=== PATIENT | female | born 1945 | race Caucasian/White ===

== ENCOUNTER 2022-06-20 10:05 | Outpatient (CLI) | payer MEDICARE, BC, SELFPAY ==
[2022-06-20 13:35] LABS: Iron* 110 ug/dL (37-170)
[2022-06-20 13:44] LABS: Percent Iron Saturation 30 % (20-50); Total Iron Binding Capacity 371 ug/dL (265-497)
[2022-06-20 13:52] LABS: Vitamin D 25 Hydroxy* 51 ng/mL (30-80)
[2022-06-20 14:23] LABS: Vitamin B12* 529 pg/mL (243-894)
== END 2022-06-20 10:06 | disposition home or self-care (01) ==
PROVIDERS: PCP Family Medicine; Visit Provider Family Medicine
DX: R20.0 Anesthesia of skin (principal); M85.80 Other specified disorders of bone density and structure, unspecified site; G62.9 Polyneuropathy, unspecified; E78.5 Hyperlipidemia, unspecified; Z13.0 Encounter for screening for diseases of the blood and blood-forming organs and certain disorders involving the immune mechanism
CPT/HCPCS: 82306; 82607; 83540; 83550

== ENCOUNTER 2022-11-21 11:03 | Outpatient (CLI) | payer MEDICARE, BC, SELFPAY ==
[2022-11-21 22:12] LABS: Chloride* 107 mmol/L (96-114)
[2022-11-21 22:13] LABS: Albumin* 4.7 g/dL (3.3-5.0); Sodium* 142 mmol/L (135-149)
[2022-11-21 22:14] LABS: Potassium* 4.4 mmol/L (3.6-5.1)
[2022-11-21 22:16] LABS: Alanine Aminotransferase* 21 U/L (4-35); Alkaline Phosphatase* 79 U/L (40-150); Aspartate Amino Transferase* 25 U/L (12-35); Bilirubin Total* 0.7 mg/dL (0.1-1.5); Blood Urea Nitrogen* 24 mg/dL (7-30); Carbon Dioxide* 27 mmol/L (20-32); Creatinine* 1.1 mg/dL (0.5-1.5); Estimated Glomerular Filt Rate 52 ml/min; Glucose* 96 mg/dL (60-115); Total Protein* 7.5 g/dL (6.0-8.3)
[2022-11-21 22:17] LABS: Calcium* 9.6 mg/dL (8.4-10.6)
[2022-11-21 22:31] LABS: Vitamin D 25 Hydroxy* 36 ng/mL (30-80)
[2022-11-21 22:46] LABS: TSH With Reflex to FT4* 0.285 uIU/mL (0.270-4.200)
[2022-11-21 23:02] LABS: Hepatitis C Virus Antibody* Negative (Negative)
[2022-11-23 21:32] LABS: SSA-60 (Ro60) (ENA) IgG 1 AU/mL (0-40); SSA52 (Ro52) (ENA) IgG 1 AU/mL (0-40)
== END 2022-11-21 11:04 | disposition home or self-care (01) ==
PROVIDERS: PCP Family Medicine; Visit Provider Family Medicine
DX: Z00.00 Encounter for general adult medical examination without abnormal findings (principal); E78.5 Hyperlipidemia, unspecified; G62.9 Polyneuropathy, unspecified; L85.3 Xerosis cutis; R68.2 Dry mouth, unspecified; Z11.59 Encounter for screening for other viral diseases; M85.80 Other specified disorders of bone density and structure, unspecified site
CPT/HCPCS: 80053; 82306; 84443; 86235; 86617; 86618; 86803

== ENCOUNTER 2023-02-27 12:44 | Outpatient (CLI) | payer MEDICARE, BC, SELFPAY ==
--- NOTE | 2023-02-27 13:00 | CRLHL7_ITS ---
For Patients: As a result of the Century Cures Act, medical imaging exams and procedure reports are released immediately into your electronic medical record. You may view this report before your referring provider. If you have questions, please contact your health care provider. DXA BONE MINERAL DENSITY STUDY Reason for exam: POSTMENOPAUSAL STATUS. Current height (in): 66. Weight (lb): 140. Menopause age: 47. Ethnicity: White. 1. Have you had a previous hip or vertebral fracture? No. 2. Have you had any fractures during your adult life which did not result from significant trauma (e.g., auto accident)? No. 3. Did either of your parents have a hip fracture? No. 4. Do you smoke? No. 5. Have you ever taken Glucocorticoids? No. 6. Do you have rheumatoid arthritis? No. 7. Do you have secondary osteoporosis? No. 8. Do you drink 3 or more alcoholic drinks per day? No. 9. Are you being treated for osteoporosis? No. 10. Have you ever taken any of the following medications: Actonel, Evista, Fosamax, Miacalcin, Reclast, Boniva, Forteo, HRT (i.e. estrogen/hormone therapy), Protelos, Prolia, Vitamin D, Calcium, other ??? please specify. ANSWER: Yes, vitamin D, calcium. 11. Do you have any of the following medical conditions: Anorexia or bulimia, asthma or emphysema, end stage renal disease, hyperparathyroidism, any seizure disorders, cancer, inflammatory bowel diseases, hysterectomy, other ??? please specify. ANSWER: Yes, hysterectomy. 12. What was your maximum height (inches)? 66. 13. Do you perform weight bearing exercise regularly? No. 14. Do you regularly consume dairy products? Yes. 15. Do you drink caffeinated beverages? Yes. 16. At what age did your period start? 12. 17. Are you premenopausal? No. 18. How many full term pregnancies have you had? 2. 19. Have you ever missed your period for more than 6 months in a row (not including or menopause)? No. TECHNIQUE: Bone mineral density study was performed using the [employer]. FINDINGS: The results of the study expressed as bone mineral density (BMD) are as follows: Lumbar spine L1 to L2: BMD: 1.013 g/cm2. T-score: 0.3. Z-score: 2.7. Neck Left: BMD: 0.682 g/cm2. T-score: -1.5. Z-score: 0.7. Right: BMD: 0.683 g/cm2. T-score: -1.5. Z-score: 0.7 Total Left: BMD: 0.789 g/cm2. T-score: -1.3. Z-score: 0.7. Right: BMD: 0.839 g/cm2. T-score: -0.8. Z-score: 1.1. IMPRESSION: Osteopenia. *Comparison exams done prior to 04/2020 were performed on different unit, [employer]. COMPARISON: Compared with scan of 07/23/2018, the bone mineral density has decreased by 3.5 percent at the spine and decreased by 2.1 percent at the hip. Compared with scan of 11/10/2014, the bone mineral density has increased 1.8 percent at the spine and decreased by 2.6 percent at the hip. FRAX 10-year Fracture Risk Major Osteoporotic Fracture: 12 percent Hip Fracture: 2.8 percent Reported Risk Factors: [place] () Neck BMD= 0.682, BMI= 22.6 Tristin Vogt M.D. Diagnostic Radiologist [email or web address] RUDY/Dictated by: Tristin Vogt MD @ 02/28/2023 12:18:00 PM (Electronically Signed)
--- NOTE | 2023-02-27 13:40 | CRLHL7_ITS ---
For Patients: As a result of the Century Cures Act, medical imaging exams and procedure reports are released immediately into your electronic medical record. You may view this report before your referring provider. If you have questions, please contact your health care provider. BILATERAL SCREENING MAMMOGRAM WITH COMPUTER-AIDED DETECTION AND TOMOSYNTHESIS TECHNIQUE: CC and MLO views were obtained. These mammographic images have been obtained using full-field digital technique. These mammographic images were interpreted with the benefit of computer-aided detection. Breast Tomosynthesis was used in this interpretation. COMPARISON FILM: 12/13/19, 07/23/18, 04/10/17. FINDINGS: The breasts are heterogeneously dense, which may obscure small masses IMPRESSION: There is no radiographic evidence for malignancy. ASSESSMENT: BI-RADS Category 1: Negative RECOMMENDATION: Routine screening mammogram in 1 year. A lay language report of this examination will be provided to the patient. Tristin Vogt M.D. Diagnostic Radiologist [email or web address] RUDY/Dictated by: Tristin Vogt MD @ 02/28/2023 9:47:00 AM (Electronically Signed)
== END 2023-02-27 12:45 | disposition home or self-care (01) ==
LOC: RAD 12:45
PROVIDERS: PCP Family Medicine; Visit Provider Family Medicine
DX: Z12.31 Encounter for screening mammogram for malignant neoplasm of breast (principal); R92.2 Inconclusive mammogram; Z78.0 Asymptomatic menopausal state; M85.89 Other specified disorders of bone density and structure, multiple sites
CPT/HCPCS: 77063; 77067; 77080

== ENCOUNTER 2023-08-12 11:54 | Outpatient (CLI) | payer MEDICARE, BC, SELFPAY | END 2023-08-12 11:55 | disposition home or self-care (01) | LOC: NFLDREF 08-13 07:32 | PROVIDERS: PCP Family Medicine; Referring Provider Family Medicine; Visit Provider Nurse Practitioner Family | DX: R30.0 Dysuria (principal); N39.0 Urinary tract infection, site not specified; N30.01 Acute cystitis with hematuria | CPT/HCPCS: 87086; 87186 ==

== ENCOUNTER 2023-08-27 13:57 | Outpatient (CLI) | payer MEDICARE, BC, SELFPAY | END 2023-08-27 13:58 | disposition home or self-care (01) | LOC: LKVREF 13:57 | PROVIDERS: PCP Family Medicine; Visit Provider Physician Assistant Medical | DX: R30.0 Dysuria (principal) | CPT/HCPCS: 87086; 87186 ==

== ENCOUNTER 2023-11-27 09:29 | Outpatient (CLI) | payer MEDICARE, BC, SELFPAY | END 2023-11-27 09:30 | disposition home or self-care (01) | PROVIDERS: PCP Family Medicine; Visit Provider Family Medicine | DX: Z00.00 Encounter for general adult medical examination without abnormal findings (principal); R73.03 Prediabetes; G62.9 Polyneuropathy, unspecified; Z13.1 Encounter for screening for diabetes mellitus | CPT/HCPCS: 80053; 82607; 82746 ==

== ENCOUNTER 2024-02-20 16:17 | Outpatient (CLI) | payer MEDICARE, BC, SELFPAY | END 2024-02-20 16:18 | disposition home or self-care (01) | LOC: NFLDREF 02-21 05:31 | PROVIDERS: PCP Family Medicine; Referring Provider Family Medicine; Visit Provider Physician Assistant | DX: N39.0 Urinary tract infection, site not specified (principal); B96.20 Unspecified Escherichia coli [E. coli] as the cause of diseases classified elsewhere; B96.1 Klebsiella pneumoniae [K. pneumoniae] as the cause of diseases classified elsewhere | CPT/HCPCS: 87086; 87186 ==

== ENCOUNTER 2024-02-26 10:44 | Outpatient (CLI) | payer MEDICARE, BC, SELFPAY ==
--- NOTE | 2024-02-26 11:00 | US_ITS ---
Patient: CHEMA VELA Facility:?[facility] Patient ID:?[id number] Site Patient ID:?[id number]. Site :?[id number] Study:?US-Abdomen/Pelvis AAA SCREENING-02/26/2024 11:33:52 AM Ordering Physician:?ALAYNA ROMERO Final Report: INDICATION: History of smoking; screening for abdominal aortic aneurysm. TECHNIQUE: Ultrasound examination of the abdominal aorta. FINDINGS: The proximal abdominal aorta measures 2.3 cm, midabdominal aorta measures 1.6 cm and the distal abdominal aorta measures 1.4 cm in AP diameter. The common iliac arteries measure 1.1 cm in diameter. Mild calcified atheromatous changes. IMPRESSION: No evidence of abdominal aortic aneurysm. Dictated by German Yarbrough MD @ 02/27/2024 2:28:02 PM Signed by:?German Yarbrough MD @02/27/2024 2:28:02 PM (Electronic Signature)
== END 2024-02-26 10:45 | disposition home or self-care (01) ==
LOC: US 10:46
PROVIDERS: PCP Family Medicine; Visit Provider Family Medicine
DX: Z13.6 Encounter for screening for cardiovascular disorders (principal); Z87.891 Personal history of nicotine dependence
CPT/HCPCS: 76706

== ENCOUNTER 2024-05-10 11:10 | Outpatient (CLI) | payer MEDICARE, BC, SELFPAY | END 2024-05-10 11:11 | disposition home or self-care (01) | LOC: NFLDREF 05-14 18:24 | PROVIDERS: PCP Family Medicine; Referring Provider Family Medicine; Visit Provider Nurse Practitioner | DX: R30.0 Dysuria (principal); N30.01 Acute cystitis with hematuria | CPT/HCPCS: 87086; 87186 ==

== ENCOUNTER 2024-05-12 08:58 | Outpatient (CLI) | payer MEDICARE, BC, SELFPAY ==
--- NOTE | 2024-05-12 09:15 | CRLHL7_ITS ---
For Patients: As a result of the Century Cures Act, medical imaging exams and procedure reports are released immediately into your electronic medical record. You may view this report before your referring provider. If you have questions, please contact your health care provider. BILATERAL SCREENING MAMMOGRAM WITH COMPUTER-AIDED DETECTION AND TOMOSYNTHESIS TECHNIQUE: CC and MLO views were obtained. These mammographic images have been obtained using full-field digital technique. These mammographic images were interpreted with the benefit of computer-aided detection. Breast tomosynthesis was used in this interpretation. COMPARISON FILM: 02/27/23, 12/13/19, 07/23/18. FINDINGS: The breasts are heterogeneously dense, which may obscure small masses. IMPRESSION: There is no radiographic evidence for malignancy. ASSESSMENT: BI-RADS Category 2: Benign RECOMMENDATION: Routine screening mammogram in 1 year. A lay language report of this examination will be provided to the patient. TRISTIN PRITCHARD M.D. Diagnostic Radiologist [email or web address] Transcribed: 2:[address]/Dictated by: Tristin Pritchard MD @ 05/12/2024 12:20:00 PM (Electronically Signed)
== END 2024-05-12 08:59 | disposition home or self-care (01) ==
LOC: MAMMO 08:59
PROVIDERS: PCP Family Medicine; Visit Provider Family Medicine
DX: Z12.31 Encounter for screening mammogram for malignant neoplasm of breast (principal); R92.2 Inconclusive mammogram
CPT/HCPCS: 77063; 77067

== ENCOUNTER 2024-05-28 15:15 | Outpatient (CLI) | payer MEDICARE, BC, SELFPAY | END 2024-05-28 15:16 | disposition home or self-care (01) | LOC: NFLDREF 05-30 10:09 | PROVIDERS: PCP Family Medicine; Referring Provider Family Medicine; Visit Provider Physician Assistant | DX: N39.0 Urinary tract infection, site not specified (principal); B96.20 Unspecified Escherichia coli [E. coli] as the cause of diseases classified elsewhere | CPT/HCPCS: 87086; 87186 ==

== ENCOUNTER 2024-05-31 11:52 | Outpatient (CLI) | payer MEDICARE, BC, SELFPAY | END 2024-05-31 11:53 | disposition home or self-care (01) | PROVIDERS: PCP Family Medicine; Visit Provider Family Medicine | DX: R19.7 Diarrhea, unspecified (principal); R63.5 Abnormal weight gain | CPT/HCPCS: 84439; 84443 ==

== ENCOUNTER 2024-08-04 09:01 | Outpatient (CLI) | payer MEDICARE, BC, SELFPAY ==
--- NOTE | 2024-08-04 09:15 | CRLHL7_ITS ---
For Patients: As a result of the Century Cures Act, medical imaging exams and procedure reports are released immediately into your electronic medical record. You may view this report before your referring provider. If you have questions, please contact your health care provider. INDICATION: Low back pain. COMPARISON: None. TECHNIQUE: Sagittal T1, T2, and STIR sequences. Axial T1 and T2 weighted sequences. FINDINGS: Degenerative grade 1 anterolisthesis of L3 on L4 and L4 on L5 measuring approximately 5-6 mm. Otherwise, normal alignment. No fractures. No vertebral body loss of height. No ligamentous injury. No suspicious osseous lesions. Normal conus terminates at L1. Small degenerative cyst along the posterior margin of the left facet joint. T12-L1 L1-2: No spinal canal neural foraminal narrowing. L2-3: No spinal canal narrowing. No neural foraminal narrowing. L3-4: Grade 1 anterolisthesis. Unroofed posterior disc bulge. Mild narrowing of spinal canal. Mild narrowing of the right neural foramen. No narrowing of the left neural foramen. Mild facet arthropathy. L4-5: Grade 1 anterolisthesis. Disc degeneration. Diffuse disc bulge eccentric to the right. Mild narrowing of spinal canal. Oblique orientation of bilateral foramina with moderate narrowing of the right neural foramen. No narrowing of left neural foramen. Mild facet arthropathy. L5-S1: Disc degeneration. Diffuse disc bulge. No narrowing of spinal canal. No impingement of the traversing S1 nerve roots. No neural foraminal narrowing. Normal visualized SI joints. Small left renal cyst. IMPRESSION: 1. Degenerative grade 1 anterolisthesis of L3 on L4 and L4 on L5. Otherwise normal alignment. No fractures 2. Lumbar spondylosis. 3. At L3-4, mild narrowing of the spinal canal and right neural foramen 4. At L4-5, mild narrowing of the spinal canal. Moderate narrowing of the right neural foramen. Dictated by Nael Arthur MD @ 08/05/2024 8:57:39 AM (Electronically Signed)
== END 2024-08-04 09:02 | disposition home or self-care (01) ==
LOC: MRI 09:02
PROVIDERS: PCP Family Medicine; Visit Provider Family Medicine
DX: M54.50 Low back pain, unspecified (principal); M43.16 Spondylolisthesis, lumbar region; N28.1 Cyst of kidney, acquired; R20.0 Anesthesia of skin
CPT/HCPCS: 72148

== ENCOUNTER 2024-08-25 09:00 | Outpatient (RCR) | payer MEDICARE, BC, SELFPAY ==
--- NOTE | 2024-08-11 16:09 | PT.OPE ---
PT [place] Outpatient Eval PT [facility] Outpatient Eval Start: 08/11/24 15:34 Freq: Status: Active Protocol: Document 08/11/24 15:35 HETAL (Rec: 08/11/24 16:06 HETAL [id number]) E-signed By Mars Higgins, PT, ATC Physical Therapy Outpatient Evaluation Insurance Information Insurance Name Medicare B Medical Diagnosis [id number], lumbar region Treating Diagnosis LE numbness Lower back and buttocks pain Imaging Report Information L3-4 Grade 1 anterolisthesis, posterior disc bulge, mild narrowing of spinal canal, mild narrowing of R neural foramen. L4-5 Grade 1 anterolisthesis, disc degeneration, diffuse disc bulge, moderate narrowing of neural foramen. Referring Florian Butler MD Subjective Preferred Name Sravani Subjective Reports a 20+ year history of lower back pain with onset of bilateral lower leg and foot numbness over the past year. Symptoms create difficulty with ADL's, care of and most farm chores. No feeling of leg weakness or falls/instability. She was given conflicting information by previous providers regarding the presence of neuropathies causing the lower limb symptoms. MRI performed 08/04/24. She was given the choice of treatments including surgery consideration, injections and PT. Her intermittent back pain is described as an ache that extends from the lower aspect into both buttocks. Leg numbness occurs from the knees down and is constant. She provides a significant amount of care to her and this is her primary source of discomfort. 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 Precautions Weight Bearing Status Full Weight Bearing Therapy Limitations/Systems Review Not Limited Objective Range of Motion Trunk AROM is not limited by pain. All motion deficits approximately 50%. Strength Trunk, hip and LE strength currently 5/5 for all joints and their respective patterns. Swelling None observed in LE's Palpation Tender and sensitive to palpation in the lumbar paraspinal and gluteal muscles . Balance & Gait Gait-absence of trunk:hip rotation, minimal UE swing Posture Stands with decreased lumbar lordosis, equal hip height. Sensation/Reflexes DTR patella:normal R and L achilles: normal R and L Able to identify soft/deep touch and sharp sensitivity in LE's. Other/Pertinent Objective Negative Slump and SLR tests Assessment Assessment/Impression Landy is a pleasant and physically fit 79 year old female referred to PT because of lower back and leg symptoms . MRI does identify multi- level degeneration, stenosis and anterolisthesis which are likely the cause for her symptoms. 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 Muscle tension certainly present in the lumbar paraspinal and gluteal musculature. Hypomobile lumbar and SI segment mobility. Skilled PT recommended to address tight musculature, vertebral hypomobility and pain. Patient has very good abdominal strength and core presence yet continued work in this area still advised. Plan of Care Rehabilitation Potential Fair Rehabilitation Potential Comments Degenerative changes, impingement and spondylolisthesis at multiple levels likely primary cause for leg numbness. Ultimately could be a surgical or injection candidate despite patient's disinterest in these . Physical Therapy Goals 1.Independent performance with home ex program for stretching and strength work. 2.Decrease both back pain and leg numbness x 50% allowing improved ease with ADL's and care of . Coordination/Communication With Referral Source Treatment Plan/Direct Interventions Joint Mobilization,Manual Therapy,Self-Care/Home Management,Therapeutic Activities,Therapeutic Exercises,Traction (Mechanical ) Frequency/Duration 1-2x per week 4-12 weeks Patient Will Be Discharged From Therapy Independent w/HEP, Independently Progressing Evaluation Billing Untimed Code Treatment Minutes 30 PT Eval No Charge No Complexity Low Certification Information Initial Certification Date 08/11/24 Ending Certification Date 11/10/24 Provider Signature Required Yes Provider Signature Shows Agreement With POC & Medical Necessity Physician NPI Number Write NPI# Here Physician Comment/Change : Physician Signature & Date Requested Please Sign/Date Here
== END 2024-12-23 23:59 | disposition home or self-care (01) ==
PROVIDERS: PCP Family Medicine; Visit Provider Family Medicine
DX: M43.16 Spondylolisthesis, lumbar region (principal); M54.50 Low back pain, unspecified; M53.3 Sacrococcygeal disorders, not elsewhere classified; R20.0 Anesthesia of skin; M79.18 Myalgia, other site; Z51.89 Encounter for other specified aftercare
CPT/HCPCS: 97110; 97140; 97161

== ENCOUNTER 2025-03-09 14:44 | Outpatient (CLI) | payer MEDICARE, BC, SELFPAY | END 2025-03-09 14:45 | disposition home or self-care (01) | PROVIDERS: PCP Family Medicine; Visit Provider Family Medicine | DX: R63.4 Abnormal weight loss (principal) | CPT/HCPCS: 80053; 84439; 84443 ==

== ENCOUNTER 2025-03-11 15:15 | Outpatient (CLI) | payer MEDICARE, BC, SELFPAY | END 2025-03-11 15:16 | disposition home or self-care (01) | LOC: NFLDREF 03-12 07:02 | PROVIDERS: PCP Family Medicine; Referring Provider Family Medicine; Visit Provider Family Medicine | DX: N39.0 Urinary tract infection, site not specified (principal); B96.20 Unspecified Escherichia coli [E. coli] as the cause of diseases classified elsewhere | CPT/HCPCS: 87086 ==

== ENCOUNTER 2025-03-21 11:35 | Outpatient (CLI) | payer MEDICARE, BC, SELFPAY ==
--- NOTE | 2025-03-21 14:08 | P.ANES_ITS ---
Anesthesia Charges Start Date/Time Anesthesia Start Date: 03/21/25 Anesthesia Start Time: 13:42 Stop Date/Time Anesthesia Stop Date: 03/21/25 Anesthesia Stop Time: 14:06 Summary Extremes of Age - Over 70 or under 1: NURSE REVIEWER Coding CPT Codes CPT Codes: [place] LWR INTST SCR COLSC - 17442 ([id number]) P2 - PATIENT W/MILD SYST DISEASE, QX - NURSE REVIEWER SVC W/ MD MED DIRECTION, QK - QUALITY MANAGEMENT COORDINATOR 2-4 CNCRNT ANES PROC Additional Codes: Summary - Extremes of Age - Over 70 or under 1: NURSE REVIEWER ([id number])
--- NOTE | 2025-03-21 14:08 | W.ANESCHARGE ---
Anesthesia Charges Start Date/Time Anesthesia Start Date: 03/21/25 Anesthesia Start Time: 13:42 Stop Date/Time Anesthesia Stop Date: 03/21/25 Anesthesia Stop Time: 14:06 Summary Extremes of Age - Over 70 or under 1: COLLATOR HAND Coding CPT Codes CPT Codes: [place] LWR INTST SCR COLSC - 21409 ([id number]) P2 - PATIENT W/MILD SYST DISEASE, QX - COLLATOR HAND SVC W/ MD MED DIRECTION, QK - SECOND TIME WORKER 2-4 CNCRNT ANES PROC Additional Codes: Summary - Extremes of Age - Over 70 or under 1: COLLATOR HAND ([id number])
--- NOTE | 2025-03-21 14:11 | P.ANES_ITS ---
Anesthesia Charges Start Date/Time Anesthesia Start Date: 03/21/25 Anesthesia Start Time: 13:42 Stop Date/Time Anesthesia Stop Date: 03/21/25 Anesthesia Stop Time: 14:06 Summary Extremes of Age - Over 70 or under 1: MDA Coding CPT Codes CPT Codes: ANES LWR INTST SCR COLSC - 41219 ([id number]) P2 - PATIENT W/MILD SYST DISEASE, QK - FUEL HANDLER 2-4 CNCRNT ANES PROC, QX - TERRAZZO WORKER SVC W/ MD MED DIRECTION Additional Codes: Summary - Extremes of Age - Over 70 or under 1: MDA ([id number])
--- NOTE | 2025-03-21 14:11 | W.ANESCHARGE ---
Anesthesia Charges Start Date/Time Anesthesia Start Date: 03/21/25 Anesthesia Start Time: 13:42 Stop Date/Time Anesthesia Stop Date: 03/21/25 Anesthesia Stop Time: 14:06 Summary Extremes of Age - Over 70 or under 1: MDA Coding CPT Codes CPT Codes: ANES LWR INTST SCR COLSC - 92483 ([id number]) P2 - PATIENT W/MILD SYST DISEASE, QK - BALL MILL MIXER 2-4 CNCRNT ANES PROC, QX - CLIENT REPRESENTATIVE SVC W/ MD MED DIRECTION Additional Codes: Summary - Extremes of Age - Over 70 or under 1: MDA ([id number])
== END 2025-03-21 11:36 | disposition home or self-care (01) ==
LOC: OP CLINIC 11:36
PROVIDERS: PCP Family Medicine; Visit Provider Surgery
DX: D50.9 Iron deficiency anemia, unspecified (principal); K57.30 Diverticulosis of large intestine without perforation or abscess without bleeding
CPT/HCPCS: 00812; 45378; 99100; J2704

== ENCOUNTER 2025-07-14 08:00 | Outpatient (CLI) | payer MEDICARE, BC, SELFPAY ==
--- NOTE | 2025-07-14 08:15 | CRLHL7_ITS ---
For Patients: As a result of the Cures Act, medical imaging exams and procedure reports are released immediately into your electronic medical record. You may view this report before your referring provider. If you have questions, please contact your health care provider. Indication: Paresthesia of skin Technique: Multiplanar, multisequence MRI of the cervical spine obtained without contrast. Comparison: Cervical spine x-ray 06/29/2025 Findings: Preserved cervical lordosis. Grade 1 anterolisthesis at C4-5 and C5-6. No acute osseous abnormality. No suspicious bone marrow lesion. Bony ankylosis across the left C2-3 and right C4-5 facet joints. Included posterior fossa structures are unremarkable. Spinal cord is normal in course, caliber, and signal. No suspicious findings identified in the paravertebral soft tissues. C2-C3: Left facet arthropathy/ankylosis. No neural foraminal or spinal canal stenosis. C3-C4: Left facet arthropathy. No neural foraminal or spinal canal stenosis. C4-C5: Facet arthropathy, right facet joint ankylosis. No neural foraminal or spinal canal stenosis. C5-C6: Shallow posterior disc-osteophyte complex, right uncovertebral and left facet arthropathy. No left, mild right neural foraminal narrowing. No spinal canal stenosis. C6-C7: Shallow posterior disc bulge, left facet arthropathy. No neural foraminal or spinal canal stenosis. C7-T1: Right facet arthropathy. No neural foraminal or spinal canal stenosis. T1-T2: Facet arthropathy. No neural foraminal or spinal canal stenosis. Impression: 1. Cervical spondylosis with low-grade spondylolisthesis and facet joint ankylosis as detailed. 2. At C5-C6, mild right neural foraminal narrowing. 3. No neural foraminal or spinal canal narrowing at the remaining levels. Dictated by Yuliet Herr MD @ 07/15/2025 2:40:35 PM (Electronically Signed)
== END 2025-07-14 08:01 | disposition home or self-care (01) ==
LOC: MRI 08:01
PROVIDERS: PCP Family Medicine; Visit Provider Family Medicine
DX: R20.2 Paresthesia of skin (principal); M47.892 Other spondylosis, cervical region; M50.222 Other cervical disc displacement at C5-C6 level; R29.898 Other symptoms and signs involving the musculoskeletal system
CPT/HCPCS: 72141